=== PATIENT | female | born 1990 | race Caucasian/White ===

== ENCOUNTER 2018-11-02 08:27 | Emergency (ER) | payer BC, OTHER ==
[2018-11-02 08:32] VITALS: BP 122/77; PULSE 93; RESP 18; TEMP 97.7
[2018-11-02] MEDS ORDERED: ONDANSETRON 4 MG ODT STARTER PACK 2 TAB BTL PO STA (09:05)
[2018-11-02] MEDS ORDERED: ACETAMINOPHEN TAB 500 MG TAB PO STA (09:05)
--- NOTE | 2018-11-02 09:11 | ED ---
General Adult HPI - General Chief complaint: Nausea/Vomiting/Diarrhea Stated complaint: [facility] - headache, nausea Time Seen by Provider: 11/02/18 08:32 Source: patient, RN notes reviewed, old records reviewed Mode of arrival: ambulatory Limitations: no limitations - History of Present Illness Initial comments: Patient is a 27-year-old female presents emergency department today with complaints of nausea, and headache after being exposed to an abnormal smell when she was at work yesterday. Patient reports that other people have been seen at work and at the [facility] that she works out for similar complaints. Patient states that she feels better after being out of that area for the past evening but that she has had a slight headache. Patient states that she's had no significant fevers or chills. She denies any significant abdominal pain. Patient states that a company needs paperwork stating that she could or could not return to work. Patient states that she does not feel quite well enough to return and does not want to be exposed to that same smell again. She states that it smelled initially like gas. They called multiple companies to determine the source of the smell including failure, floor winder's. Today at environmental has will be coming to the office. - Related Data Home Medications Medication Instructions Recorded Confirmed No Known Home Medications 11/02/18 11/02/18 Allergies Allergy/AdvReac Type Severity Reaction Status Date / Time citalopram hydrobromide Allergy Unknown Verified 11/02/18 09:04 [From [employer]] Review of Systems ROS Statement: Those systems with pertinent positive or pertinent negative responses have been documented in the HPI. ROS Other: All systems not noted in ROS Statement are negative. Past Medical History Past Medical History: No Reported History History of Any Multi-Drug Resistant Organisms: None Reported Past Surgical History: No Surgical Hx Reported Past Psychological History: Anxiety Smoking Status: Never smoker Past Alcohol Use History: Occasional Past Drug Use History: None Reported General Exam - General Exam Comments Initial Comments: 27-year-old female. Alert and oriented. No distress. Limitations: no limitations General appearance: alert, in no apparent distress Head exam: Present: atraumatic, normocephalic, normal inspection Eye exam: Present: normal appearance, PERRL, EOMI. Absent: scleral icterus, conjunctival injection, periorbital swelling ENT exam: Present: normal exam, mucous membranes moist Neck exam: Present: normal inspection. Absent: tenderness, meningismus, lymphadenopathy Respiratory exam: Present: normal lung sounds bilaterally. Absent: respiratory distress, wheezes, rales, rhonchi, stridor Cardiovascular Exam: Present: regular rate, normal rhythm, normal heart sounds. Absent: systolic murmur, diastolic murmur, rubs, gallop, clicks GI/Abdominal exam: Present: soft, normal bowel sounds. Absent: distended, tenderness, guarding, rebound, rigid Extremities exam: Present: normal inspection, full ROM, normal capillary refill. Absent: tenderness, pedal edema, joint swelling, calf tenderness Back exam: Present: normal inspection Neurological exam: Present: alert, oriented X3, CN II-XII intact Psychiatric exam: Present: normal affect, normal mood Skin exam: Present: warm, dry, intact, normal color. Absent: rash Course Vital Signs 11/02/18 08:28 Temperature 97.7 F Pulse Rate 93 Respiratory 18 Rate Blood Pressure 122/77 O2 Sat by Pulse 99 Oximetry Medical Decision Making - Medical Decision Making Patient is a 27-year-old female presents emergency department today for a headache, and nausea. She states it's related to exposure at work, and abnormal smell. I discussed that Patient has been out of the area of exposure for over 12 hours is no need to test for carbon monoxide anything at this point. She states that Patient states coworker had negative carbon monoxide test. At this time Patient was given Motrin Tylenol. Given a note for work. Discussed that she should rest, remain hydrated. She continued to have more symptoms again have Patient reevaluated and received IV fluids and labs. When she was in further she states she did not want to have any labs or fluids at this time. Disposition Clinical Impression: Adverse exposure in workplace, Headache, Nausea Disposition: HOME SELF-CARE Condition: Good Instructions (If sedation given, give patient instructions): Acute Nausea and Vomiting (ED) Additional Instructions: Follow-up with [facility]. . Patient is to recommend to take Motrin Tylenol, return to emergency department if any alarming signs or symptoms occur. Is patient prescribed a controlled substance at d/c from ED?: No Referrals: None,Stated [Primary Care Provider] - 1-2 days Time of Disposition: 09:11
== END 2018-11-02 09:29 | disposition home or self-care (01) ==
LOC: EC 08:27
DX: T75.89XA Other specified effects of external causes, initial encounter (principal); R51 Headache; R11.0 Nausea; Z88.8 Allergy status to other drugs, medicaments and biological substances; Y92.69 Other specified industrial and construction area as the place of occurrence of the external cause; Y99.0 Civilian activity done for income or pay
CPT/HCPCS: 99284; S0119

== ENCOUNTER 2020-06-26 14:32 | Emergency (ER) | payer OTHER ==
--- NOTE | 2020-06-26 15:06 | ED ---
URI HPI - General Chief Complaint: Upper Respiratory Infection Stated Complaint: COVID+/chest pain Time Seen by Provider: 06/26/20 14:51 Source: patient, RN notes reviewed Mode of arrival: ambulatory Limitations: no limitations - History of Present Illness Initial Comments: Patient is a 29-year-old female that presents to the emergency department compla ining of cough and recent Covid positive test. She notes that symptoms began on Tuesday and she finally got her results yesterday. Shethat she doesn't have a primary care but she does have a history of pneumonia and just wanted to get evaluated to make sure it wasn't progressing into a pneumonia. She stated that she does have a cough that is dry in nature. She denied any pain shortness of breath headache nausea vomiting diarrhea constipation fever fatigue chills - Related Data Home Medications Medication Instructions Recorded Confirmed No Known Home Medications 11/02/18 06/26/20 Allergies Allergy/AdvReac Type Severity Reaction Status Date / Time citalopram hydrobromide Allergy Unknown Verified 06/26/20 15:21 [From [employer]] Review of Systems ROS Statement: Those systems with pertinent positive or pertinent negative responses have been documented in the HPI. ROS Other: All systems not noted in ROS Statement are negative. Past Medical History Past Medical History: Pneumonia History of Any Multi-Drug Resistant Organisms: None Reported Past Surgical History: No Surgical Hx Reported Past Psychological History: Anxiety Smoking Status: Never smoker Past Alcohol Use History: Occasional Past Drug Use History: None Reported General Exam Limitations: no limitations General appearance: alert, in no apparent distress Head exam: Present: atraumatic, normocephalic, normal inspection Eye exam: Present: normal appearance, PERRL, EOMI. Absent: scleral icterus, conjunctival injection, periorbital swelling ENT exam: Present: normal exam, mucous membranes moist Neck exam: Present: normal inspection. Absent: tenderness, meningismus, lymphadenopathy Respiratory exam: Present: normal lung sounds bilaterally. Absent: respiratory distress, wheezes, rales, rhonchi, stridor Cardiovascular Exam: Present: regular rate, normal rhythm, normal heart sounds. Absent: systolic murmur, diastolic murmur, rubs, gallop, clicks GI/Abdominal exam: Present: soft, normal bowel sounds. Absent: distended, tenderness, guarding, rebound, rigid Extremities exam: Present: normal inspection, full ROM, normal capillary refill. Absent: tenderness, pedal edema, joint swelling, calf tenderness Neurological exam: Present: alert, oriented X3, CN II-XII intact Psychiatric exam: Present: normal affect, normal mood Skin exam: Present: warm, dry, intact, normal color. Absent: rash Course Vital Signs 06/26/20 14:43 Temperature 98.0 F Pulse Rate 60 Respiratory 18 Rate Blood Pressure 120/75 O2 Sat by Pulse 100 Oximetry Medical Decision Making - Medical Decision Making 29-year-old Female that is Covid positive complaining of cough. Labs, chest x-ray, EKG ordered. Labs unremarkable. Chest x-ray showed no cardiopulmonary process. EKG was within normal limits. Case discussed with Dr. Tripp, patient could discharge home with conservative management. - Lab Data Result diagrams: 06/26/20 15:29 06/26/20 15:29 Lab Results 06/26/20 06/26/20 06/26/20 Range/Units 15:29 15:29 15:29 WBC 2.8 L (3.8-10.6) k/uL RBC 4.62 (3.80-5.40) m/uL Hgb 14.5 (11.4-16.0) gm/dL Hct 42.6 (34.0-46.0) % MCV 92.2 (80.0-100.0) fL MCH 31.3 (25.0-35.0) pg MCHC 34.0 (31.0-37.0) g/dL RDW 12.5 (11.5-15.5) % Plt Count 179 (150-450) k/uL MPV 7.2 Neutrophils % 62 % Lymphocytes % 18 % Monocytes % 13 % Eosinophils % 2 % Basophils % 2 % Neutrophils # 1.7 (1.3-7.7) k/uL Lymphocytes # 0.5 L (1.0-4.8) k/uL Monocytes # 0.4 (0-1.0) k/uL Eosinophils # 0.1 (0-0.7) k/uL Basophils # 0.1 (0-0.2) k/uL Sodium 139 (137-145) mmol/L Potassium 4.1 (3.5-5.1) mmol/L Chloride 101 (98-107) mmol/L Carbon Dioxide 27 (22-30) mmol/L Anion Gap 11 mmol/L BUN 15 (7-17) mg/dL Creatinine 0.73 (0.52-1.04) mg/dL Est GFR (CKD-EPI)AfAm >90 (>60 ml/min/1.73 sqM) Est GFR (CKD-EPI)NonAf >90 (>60 ml/min/1.73 sqM) Glucose 92 (74-99) mg/dL Calcium 9.7 (8.4-10.2) mg/dL Urine Color Yellow Urine Appearance Cloudy H (Clear) Urine pH 5.5 (5.0-8.0) Ur Specific [place] 1.030 (1.001-1.035) Urine Protein Negative (Negative) Urine Glucose (UA) Negative (Negative) Urine Ketones Negative (Negative) Urine Blood Moderate H (Negative) Urine Nitrite Negative (Negative) Urine Bilirubin Negative (Negative) Urine Urobilinogen <2.0 (<2.0) mg/dL Ur Leukocyte Esterase Negative (Negative) Urine RBC 42 H (0-5) /hpf Urine WBC 1 (0-5) /hpf Ur Squamous Epith Cells 8 H (0-4) /hpf Urine Mucus Rare H (None) /hpf Urine HCG, Qual (Not Detectd) 06/26/20 Range/Units 15:29 WBC (3.8-10.6) k/uL RBC (3.80-5.40) m/uL Hgb (11.4-16.0) gm/dL Hct (34.0-46.0) % MCV (80.0-100.0) fL MCH (25.0-35.0) pg MCHC (31.0-37.0) g/dL RDW (11.5-15.5) % Plt Count (150-450) k/uL MPV Neutrophils % % Lymphocytes % % Monocytes % % Eosinophils % % Basophils % % Neutrophils # (1.3-7.7) k/uL Lymphocytes # (1.0-4.8) k/uL Monocytes # (0-1.0) k/uL Eosinophils # (0-0.7) k/uL Basophils # (0-0.2) k/uL Sodium (137-145) mmol/L Potassium (3.5-5.1) mmol/L Chloride (98-107) mmol/L Carbon Dioxide (22-30) mmol/L Anion Gap mmol/L BUN (7-17) mg/dL Creatinine (0.52-1.04) mg/dL Est GFR (CKD-EPI)AfAm (>60 ml/min/1.73 sqM) Est GFR (CKD-EPI)NonAf (>60 ml/min/1.73 sqM) Glucose (74-99) mg/dL Calcium (8.4-10.2) mg/dL Urine Color Urine Appearance (Clear) Urine pH (5.0-8.0) Ur Specific [place] (1.001-1.035) Urine Protein (Negative) Urine Glucose (UA) (Negative) Urine Ketones (Negative) Urine Blood (Negative) Urine Nitrite (Negative) Urine Bilirubin (Negative) Urine Urobilinogen (<2.0) mg/dL Ur Leukocyte Esterase (Negative) Urine RBC (0-5) /hpf Urine WBC (0-5) /hpf Ur Squamous Epith Cells (0-4) /hpf Urine Mucus (None) /hpf Urine HCG, Qual Not Detected (Not Detectd) - EKG Data -: EKG Interpreted by Sc EKG shows normal: sinus rhythm Rate: normal EKG Comments: Ventricular rate 88 bpm, NC interval 156 ms, QRS duration 84 ms, QT/QTC 350/420 ms, PRT axes 65/46/35. Normal sinus rhythm, normal ECG. - Radiology Data Radiology results: report reviewed, image reviewed Chest x-ray:No acute cardiopulmonary process. Disposition Clinical Impression: COVID-19 Disposition: HOME SELF-CARE Condition: Stable Instructions (If sedation given, give patient instructions): Upper Respiratory Infection (ED) Additional Instructions: Please return to the Emergency Department if symptoms worsen or any other concerns. Quarantine per CDC guidelines, 10-14 days symptom onset. Follow-up with primary care as soon as possible. Conservative management with rest, anti-inflammatories for fever and pains. Is patient prescribed a controlled substance at d/c from ED?: No Referrals: None,Stated [Primary Care Provider] - 1-2 days Time of Disposition: 16:42
[2020-06-26 15:47] LABS: Basophils # (A) 0.1 k/uL (0-0.2); Basophils % (A) 2 %; Eosinophils # (A) 0.1 k/uL (0-0.7); Eosinophils % (A) 2 %; HCT 42.6 % (34.0-46.0); HGB 14.5 gm/dL (11.4-16.0); Lymphocytes # (A) 0.5 k/uL (1.0-4.8); Lymphocytes % (A) 18 %; MCH 31.3 pg (25.0-35.0); MCV 92.2 fL (80.0-100.0); Mean Platelet Volume 7.2; Monocytes # (A) 0.4 k/uL (0-1.0); Monocytes % (A) 13 %; Neutrophils # (A) 1.7 k/uL (1.3-7.7); Neutrophils % (A) 62 %; Platelet Count 179 k/uL (150-450); RBC 4.62 m/uL (3.80-5.40); RDW 12.5 % (11.5-15.5); WBC 2.8 k/uL (3.8-10.6)
[2020-06-26 15:51] LABS: Appearance,Urine Cloudy (Clear); Bilirubin,Urine Negative (Negative); Blood,Urine Moderate (Negative); Color,Urine Yellow; Glucose,Urine (UA) Negative (Negative); Ketones,Urine Negative (Negative); Leukocyte Esterase,Urine Negative (Negative); Mucus,Urine Rare /hpf; Nitrite,Urine Negative (Negative); PH, Urine 5.5 (5.0-8.0); Protein,Urine Negative (Negative); RBC,Urine 42 /hpf (0-5); Squamous Epithelial Cell,Urine 8 /hpf (0-4); Urobilinogen,Urine <2.0 mg/dL (<2.0); WBC,Urine 1 /hpf (0-5)
[2020-06-26 16:01] LABS: African American GFR (CKD) >90 (>60 ml/min/1.73 sqM); Anion Gap 11 mmol/L; Blood Urea Nitrogen 15 mg/dL (7-17); Calcium 9.7 mg/dL (8.4-10.2); Carbon Dioxide 27 mmol/L (22-30); Chloride 101 mmol/L (98-107); Glucose 92 mg/dL (74-99); Non-African American GFR(CKD) >90 (>60 ml/min/1.73 sqM); Potassium 4.1 mmol/L (3.5-5.1); Sodium 139 mmol/L (137-145)
--- NOTE | 2020-06-26 16:22 | XR ---
EXAMINATION TYPE: XR chest 2V DATE OF EXAM: 06/26/2020 COMPARISON: NONE HISTORY: Covid positive, cough TECHNIQUE: Frontal and lateral views of the chest are obtained. FINDINGS: There is no focal air space opacity, pleural effusion, or pneumothorax seen. The cardiac silhouette size is within normal limits. The osseous structures are intact. IMPRESSION: No acute cardiopulmonary process.
[2020-06-26 16:53] VITALS: BP 120/81; PULSE 94; RESP 16; TEMP 99
== END 2020-06-26 16:51 | disposition home or self-care (01) ==
LOC: EC 14:32
DX: U07.1 COVID-19 (principal); F41.9 Anxiety disorder, unspecified
CPT/HCPCS: 36415; 71046; 80048; 81001; 81025; 85025; 93005; 99285